=== PATIENT | female | born 1945 | race Caucasian/White ===

== ENCOUNTER 2016-07-14 17:06 | Outpatient (CLI) | payer MEDICARE, BC | END 2016-07-14 17:07 | disposition home or self-care (01) | DX: R31.9 Hematuria, unspecified (principal) ==

== ENCOUNTER 2018-02-18 09:42 | Emergency (ER) | payer MEDICARE, BC ==
--- NOTE | 2018-02-18 10:28 | XRAY Report ---
Reason: chest pain Procedure Date: 02/18/2018 Accession Number: [id number] / [id number] Procedure: XR - Chest 2 View X-Ray CPT Code: 61214 FULL RESULT: EXAM: CHEST RADIOGRAPHY EXAM DATE: 02/18/2018 10:12 AM. CLINICAL HISTORY: Chest pain. COMPARISON: XR CHEST PA AND LAT 11/13/2008 9:[address] with contrast 03/04/2009 8:15 AM. TECHNIQUE: 2 views. FINDINGS: Lungs/Pleura: There is streaky linear opacity in the right middle lobe which appears similar to prior exams, suggestive of atelectasis or scarring. No new focal pulmonary opacity. No pleural effusion. No pneumothorax. Normal volumes. Mediastinum: There is borderline enlargement of the cardiac silhouette. Other: No acute osseous abnormality. There are mild degenerative disk changes of the thoracic spine. IMPRESSION: 1. Streaky right middle lobe opacity appears similar to prior exams, suggestive of atelectasis or scarring. No new focal pulmonary opacity. 2. Borderline cardiomegaly. RADIA
[2018-02-18 10:43] LABS: BASOPHILS # (AUTO) 0.1 10^3/uL (0.0-0.1); BASOPHILS % (AUTO) 1.1 %; EOSINOPHILS # (AUTO) 0.3 10^3/uL (0.0-0.7); HGB - HEMOGLOBIN 11.8 g/dL (12.0-16.0); LYMPHOCYTES # (AUTO) 1.7 10^3/uL (1.5-3.5); LYMPHOCYTES % (AUTO) 27.5 %; MEAN CORPUSCULAR HEMOGLOBIN 27.5 pg (27.0-31.0); MEAN CORPUSCULAR HGB CONC 33.4 g/dL (32.0-36.0); MEAN CORPUSCULAR VOLUME 82.4 fL (81.0-99.0); MEAN PLATELET VOLUME 9.4 fL (7.9-10.8); MONOCYTES # (AUTO) 0.6 10^3/uL (0.0-1.0); MONOCYTES % (AUTO) 9.6 %; NEUTROPHILS # (AUTO) 3.5 10^3/uL (1.5-6.6); NEUTROPHILS % (AUTO) 56.8 %; PLT - PLATELET COUNT 197 10^3/uL (130-450); RED BLOOD COUNT 4.29 10^6/uL (4.20-5.40); RED CELL DISTRIBUTION WIDTH 17.9 % (12.0-15.0); WHITE BLOOD COUNT 6.2 x10^3/uL (4.8-10.8)
[2018-02-18 10:54] LABS: ALBUMIN 4.5 g/dL (3.2-5.5); ALBUMIN/GLOBULIN RATIO 1.2 (1.0-2.2); BILIRUBIN,TOTAL 0.8 mg/dL (0.2-1.0); CALCIUM 9.6 mg/dL (8.5-10.3); CREATININE 0.5 mg/dL (0.4-1.0); TOTAL PROTEIN 8.2 g/dL (6.7-8.2)
--- NOTE | 2018-02-18 11:50 | ED Physician Documentation ---
History of Present Illness - Stated complaint Stated Complaint: IRREGULAR HEARBEAT - Chief complaint Chief Complaint: Cardiac - Additonal information Additional information: hx from pt 72 female 7 prior stents has again been gradually worsening upper kest throat and jaw pain with exertion started very mild in November somewhat confounded by concurrent URI sx and being at [facility] in [facility] but after returning home sx contineu to worsen and are now very freq with only mild exertion relieved with nitro and or rest never lasting more than a few min has cardio appt in 3 days but sx escalalting no fever cough leg swelling no pain at this moment on asa BB statin nitro Review of Systems Constitutional: denies: Fever Cardiac: reports: Chest pain / pressure, Palpitations Respiratory: reports: Dyspnea. denies: Cough GI: denies: Abdominal Pain, Nausea, Vomiting : denies: Dysuria Neurologic: denies: Generalized weakness Immunocompromised: denies: Immunocompromised PD PAST MEDICAL HISTORY - Allergies Allergies/Adverse Reactions: Allergies Allergy/AdvReac Type Severity Reaction Status Date / Time No Known Drug Allergies Allergy Verified 02/18/18 09:52 PD ED PE NORMAL - Vitals Vital signs reviewed: Yes - Neck Neck: Supple, no meningeal sign - Cardiac Cardiac: RRR - Respiratory Respiratory: No respiratory distress - Abdomen Abdomen: Soft, Non tender - Derm Derm: Normal color - Extremities Extremities: No deformity, No tenderness to palpate - Neuro Neuro: Alert and oriented X 3 Results - Vitals Vitals: Vital Signs - 24 hr 02/18/18 02/18/18 02/18/18 09:47 10:30 10:45 Temperature 36.6 C Heart Rate 81 77 82 Respiratory 16 16 18 Rate Blood Pressure 152/75 H 160/77 H 149/79 H O2 Saturation 99 98 99 02/18/18 02/18/18 02/18/18 11:00 11:15 11:45 Temperature Heart Rate 76 76 75 Respiratory 20 18 16 Rate Blood Pressure 161/83 H 151/74 H 164/83 H O2 Saturation 02/18/18 12:00 Temperature Heart Rate 72 Respiratory Rate Blood Pressure 158/84 H O2 Saturation Oxygen O2 Source Room air - EKG (time done) 1001 Rate: Rate (enter#) (76) Rhythm: NSR [place]: Normal Ischemia: Other (very slight ST depression lateral leads, no ST elev) - Labs Labs: Laboratory Tests 1002/18/18 02/18/18 10:20 10:20 10:20 WBC 6.2 RBC 4.29 Hgb 11.8 L Hct 35.3 L MCV 82.4 MCH 27.5 MCHC 33.4 RDW 17.9 H Plt Count 197 MPV 9.4 Neut # (Auto) 3.5 Lymph # (Auto) 1.7 [place] # (Auto) 0.6 Eos # (Auto) 0.3 Baso # (Auto) 0.1 Absolute Nucleated RBC 0.00 Nucleated RBC % 0.1 Sodium 139 Potassium 4.0 Chloride 103 Carbon Dioxide 27 Anion Gap 9.0 BUN 20 Creatinine 0.5 Estimated GFR (MDRD) 122 Glucose 134 H Calcium 9.6 Total Bilirubin 0.8 AST 30 ALT 27 Alkaline Phosphatase 64 Troponin I 0.17 Total Protein 8.2 Albumin 4.5 Globulin 3.7 Albumin/Globulin Ratio 1.2 Lipase 40 - Rads (name of study) CXR Radiology: See rad report (streaky RML opacity is unchanged from prior and per atelectasis or scarring) PD MEDICAL DECISION MAKING - ED course ED course: escalating unstable angina will call cardio for transfer and cath spoke to cardio Dr jaleesa Dove at [facility] and he accepts pt in transfer for cath today and would like heparin started Departure - Departure Disposition: 02 Transfer Acute Care Hosp Clinical Impression: Unstable angina Condition: Fair
[2018-02-18] MEDS ORDERED: HEPARIN 25000UNITS/500ML (D5W) 25,000 UNIT/500 ML BAG IV STA (12:51)
[2018-02-18] MEDS ORDERED: HEPARIN DRIP CARDIAC @ 12 UNITS/KG/HR IV STA (13:27)
[2018-02-18 13:59] VITALS: BP 160/85
== END 2018-02-18 13:50 | disposition short-term general hospital (02) ==
LOC: ED 09:42
DX: I20.0 Unstable angina (principal); I51.7 Cardiomegaly
CPT/HCPCS: 36415; 71046; 80053; 83690; 84484; 85025; 93005; 96374; 96375; 99284; 99285

== ENCOUNTER 2018-02-18 13:51 | Outpatient (CLI) | payer MEDICARE, BC | END 2018-02-18 13:52 | disposition short-term general hospital (02) | LOC: EMS 13:51 | PROVIDERS: ATTEND Surgery | DX: R07.9 Chest pain, unspecified (principal); R06.02 Shortness of breath | CPT/HCPCS: A0170; A0425; A0426 ==

== ENCOUNTER 2018-04-05 13:55 | Outpatient (CLI) | payer MEDICARE, BC ==
--- NOTE | 2018-04-05 15:30 | XRAY Report ---
Reason: ACUTE R CALCANEAL PAIN Procedure Date: 04/05/2018 Accession Number: [id number] / [id number] Procedure: XR - Calcaneus RT CPT Code: FULL RESULT: EXAM: RIGHT CALCANEUS RADIOGRAPHY EXAM DATE: 04/05/2018 02:10 PM. CLINICAL HISTORY: Acute right calcaneal pain. COMPARISON: Right ankle 03/06/2007 7:56 PM. TECHNIQUE: 2 views. FINDINGS: Bones: Inferior calcaneal spurring. No fractures or bone lesions. 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 Soft Tissues: Note is made of 2 bone anchors projecting in the region of the lateral talus. 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 Correlate to posterior impingement syndrome. MRI imaging in 2006 also demonstrated edema in the area. RADIA
== END 2018-04-05 13:56 | disposition home or self-care (01) ==
LOC: DI 13:55
PROVIDERS: ATTEND Podiatrist
DX: M19.071 Primary osteoarthritis, right ankle and foot (principal); Q68.8 Other specified congenital musculoskeletal deformities